=== PATIENT | female | born 1955 | race Caucasian/White ===

== ENCOUNTER 2021-06-01 15:52 | Emergency (ER) | payer MEDICARE, SELFPAY ==
[2021-06-01 16:11] VITALS: BP 133/83; PULSE 69; RESP 18; TEMP 36.8; O2SAT 96; BMI 24.0
--- NOTE | 2021-06-01 16:17 | XRR_ITS ---
PROCEDURE INFORMATION: Exam: XR Chest Exam date and time: 06/01/2021 4:17 PM Age: 65 years old Clinical indication: Pain; Angina and other: Syncope; Angina pectoris; Prior surgery; Surgery date: 6+ months; Surgery type: Bicuspid valve replacement; Patient HX: Had seizures 5 days ago, no prior history of seizures. 3 syncopal episodes today TECHNIQUE: Imaging protocol: XR of the chest. Views: 1 view. COMPARISON: No relevant prior studies available. FINDINGS: Tubes, catheters and devices: Median sternotomy changes and heart valve prosthesis. Lungs: Consolidation in the left lung base. The right lung is clear. Pleural spaces: Unremarkable. No pleural effusion. No pneumothorax. Heart/Mediastinum: Unremarkable. No cardiomegaly. Diaphragm: Irregular contour of the left diaphragm. Bones/joints: Right shoulder arthroplasty changes. Multiple old left posterior rib fractures. XR/XR chest 1V portable [id number] IMPRESSION: 1. Consolidation in the left lung base with irregular contour of the left diaphragm. This could relate to old injury. Pneumonia, aspiration, or less likely a neoplastic process cannot be excluded. 2. Follow-up with a CT scan chest is recommended.
--- NOTE | 2021-06-01 16:17 | CTR_ITS ---
PROCEDURE INFORMATION: Exam: CT Head Without Contrast Exam date and time: 06/01/2021 4:17 PM Age: 65 years old Clinical indication: Altered mental status/memory loss; Patient HX: New onset of seizures. Multiple recent falls. Off balance. Dizzy. Visual disturbance. PT started new medicine; Additional info: Ams/ seizure? TECHNIQUE: Imaging protocol: Computed tomography of the head without contrast. Radiation optimization: All CT scans at this facility use at least one of these dose optimization techniques: automated exposure control; mA and/or kV adjustment per patient size (includes targeted exams where dose is matched to clinical indication); or iterative reconstruction. COMPARISON: No relevant prior studies available. RADIATION DOSE METRICS: Total DLP (mGy-cm): 754.25 FINDINGS: Brain: Mild diffuse cortical volume loss. Severe hypodensities in supratentorial periventricular and subcortical white matter, consistent with microangiopathy. No intracranial hemorrhage. Multiple small lacunar infarcts in the bilateral lentiform nuclei, subinsular regions, and left internal capsule. Cerebral ventricles: No ventriculomegaly. Paranasal sinuses: Visualized sinuses are unremarkable. No fluid levels. Mastoid air cells: Visualized mastoid air cells are well aerated. Orbital cavity: Prior cataract surgery. Vasculature: No hyperdense artery. Bones/joints: Unremarkable. No acute fracture. Soft tissues: Small right parietal scalp contusion. CT/CT head wo con* [id number] IMPRESSION: 1. No fracture or intracranial hemorrhage. 2. Severe microangiopathy. 3. Multiple lacunar infarcts in the bilateral basal ganglia, subinsular regions, and left internal capsule are most likely chronic, but are age indeterminate. If there is clinical concern for an acute infarct, this can be further evaluated with MRI.
--- NOTE | 2021-06-01 16:32 | PC.NURSE ---
patient transported to ct via stretcher per laser/electro optics technician.
--- NOTE | 2021-06-01 17:05 | CTR_ITS ---
PROCEDURE INFORMATION: Exam: CT Angiography Head With Contrast, Arteriography Exam date and time: 06/01/2021 5:05 PM Age: 65 years old Clinical indication: Convulsions / seizures and visual disturbance and other: Off balance; Prior surgery; Additional info: Eval for posterior stroke TECHNIQUE: Imaging protocol: Computed tomography angiography of the head with contrast. Exam focused on the arteries. 3D rendering (Not supervised by radiologist): MIP and/or 3D reconstructed images were created by the technologist. Radiation optimization: All CT scans at this facility use at least one of these dose optimization techniques: automated exposure control; mA and/or kV adjustment per patient size (includes targeted exams where dose is matched to clinical indication); or iterative reconstruction. Contrast material: VISI 320; Contrast volume: 95 ml; Contrast route: INTRAVENOUS (IV); COMPARISON: CT head wo con* [id number] 06/01/2021 4:35 PM RADIATION DOSE METRICS: Total DLP (mGy-cm): 2214.03 FINDINGS: ANTERIOR CIRCULATION: Right internal carotid artery: Unremarkable. Intracranial segment is patent with no significant stenosis. No aneurysm. Right middle cerebral artery: Unremarkable. No occlusion or significant stenosis. No aneurysm. Right anterior cerebral artery: Unremarkable. No occlusion or significant stenosis. No aneurysm. Left internal carotid artery: Unremarkable. Intracranial segment is patent with no significant stenosis. No aneurysm. Left middle cerebral artery: Unremarkable. No occlusion or significant stenosis. No aneurysm. Left anterior cerebral artery: Unremarkable. No occlusion or significant stenosis. No aneurysm. POSTERIOR CIRCULATION: Right vertebral artery: Unremarkable. No occlusion or significant stenosis. No aneurysm. Left vertebral artery: Unremarkable. No occlusion or significant stenosis. No aneurysm. Basilar artery: Unremarkable. No occlusion or significant stenosis. No aneurysm. Right posterior cerebral artery: Unremarkable. No occlusion or significant stenosis. No aneurysm. Left posterior cerebral artery: Unremarkable. No occlusion or significant stenosis. No aneurysm. Brain: No definite mass, mass effect, or midline shift. Cerebral ventricles: No ventriculomegaly. Bones/joints: Unremarkable. No acute fracture. Soft tissues: Unremarkable. PROCEDURE INFORMATION: Exam: CT Angiography Neck With Contrast Exam date and time: 06/01/2021 5:05 PM Age: 65 years old Clinical indication: Convulsions / seizures and visual disturbance and other: Off balance; Prior surgery; Additional info: Eval for posterior stroke TECHNIQUE: Imaging protocol: Computed tomography angiography of the neck with contrast. 3D rendering (Not supervised by radiologist): MIP and/or 3D reconstructed images were created by the technologist. Radiation optimization: All CT scans at this facility use at least one of these dose optimization techniques: automated exposure control; mA and/or kV adjustment per patient size (includes targeted exams where dose is matched to clinical indication); or iterative reconstruction. Contrast material: VISI 320; Contrast volume: 95 ml; Contrast route: INTRAVENOUS (IV); COMPARISON: CT head wo con* [id number] 06/01/2021 4:35 PM RADIATION DOSE METRICS: Total DLP (mGy-cm): 2214.03 FINDINGS: Right common carotid artery: No stenosis. No dissection or occlusion. Right internal carotid artery: No stenosis of the extracranial segment. No dissection or occlusion. Right external carotid artery: No occlusion or stenosis of the origin. Left common carotid artery: No stenosis. No dissection or occlusion. Left internal carotid artery: No stenosis of the extracranial segment. No dissection or occlusion. Left external carotid artery: No occlusion or stenosis of the origin. Right vertebral artery: No stenosis. No dissection or occlusion. Left vertebral artery: No stenosis. No dissection or occlusion. Soft tissues: Normal. No significant soft tissue swelling. Bones/joints: No acute fracture. CT/CT angio headneck* [id number] IMPRESSION: No large vessel stenosis or occlusion. IMPRESSION: No stenosis or occlusion. REFERENCES: NASCET CRITERIA. The degree of internal carotid artery stenosis is based on NASCET criteria. Normal is no stenosis. Mild is less than 50% stenosis. Moderate is 50-69% stenosis. Severe is 70% to 99% stenosis. Total occlusion is no detectable patent lumen.
--- NOTE | 2021-06-01 17:05 | CTR_ITS ---
PROCEDURE INFORMATION: Exam: CTA Chest With Contrast Exam date and time: 06/01/2021 5:05 PM Age: 65 years old Clinical indication: Shortness of breath; Prior surgery; Additional info: Eval aortic valve and aneurymsal surgery TECHNIQUE: Imaging protocol: Computed tomographic angiography of the chest with contrast. 3D rendering (Not supervised by radiologist): MIP and/or 3D reconstructed images were created by the technologist. Radiation optimization: All CT scans at this facility use at least one of these dose optimization techniques: automated exposure control; mA and/or kV adjustment per patient size (includes targeted exams where dose is matched to clinical indication); or iterative reconstruction. Contrast material: VISI 320; Contrast volume: 69 ml; Contrast route: INTRAVENOUS (IV); COMPARISON: CR (CHEST, ) 06/01/2021 4:48 PM RADIATION DOSE METRICS: Total DLP (mGy-cm): 1163.56 FINDINGS: Tubes, catheters and devices: Aortic valve prosthesis. Pulmonary arteries: Normal. No pulmonary emboli. Aorta: 4.2 cm aneurysmal dilatation of the ascending thoracic aorta. No dissection. Tortuous descending thoracic aorta. Lungs: Emphysema. Atelectasis in the lower lobes, left greater than right. No consolidation. Pleural spaces: Unremarkable. No pneumothorax. No pleural effusion. Heart: Coronary artery calcifications and stents. Lymph nodes: Unremarkable. No enlarged lymph nodes. Diaphragm: Mild elevation of the left diaphragm. No hernia identified. Spleen: Hypodensity in the spleen is too small to characterize but is most likely a cyst. No follow-up imaging is recommended. Kidneys and ureters: Fluid density left renal cysts, Hounsfield units less than 20. No follow-up imaging recommended. Bones/joints: Median sternotomy changes. Right shoulder arthroplasty with hardware streak artifact. Scoliosis and kyphosis. T7 kyphoplasty with compression. Minimal T10 compression. Multilevel degenerative changes of the spine. Multiple old healed left rib fractures. Soft tissues: Unremarkable. CT/CT angio chest PE protcl [id number] IMPRESSION: 1. No evidence for pulmonary embolus or other acute finding. 2. Basilar atelectasis, left greater than right. 3. 4.2 cm aneurysmal dilatation of the ascending thoracic aorta. No dissection. COMMENTS: Consistent with the [employer]'s Incidental Findings Committee white paper (J Am Shakira Radiol 2018): Any incidental renal lesion less than 1 cm or classified as too small to characterize, or any incidental cystic renal lesion characterized as simple-appearing, is likely benign. No follow-up imaging is recommended for these lesions per consensus recommendations based on imaging criteria.
[2021-06-01 17:07] VITALS: BP 152/88; PULSE 69; RESP 18; O2SAT 99
--- NOTE | 2021-06-01 17:11 | ED_ITS ---
HPI - General Adult General: Chief complaint: Seizure Stated complaint: SEIZURES/INCOHERENT Time Seen by Provider: 06/01/21 16:17 History of Present Illness: HPI narrative: HPI: [65]yo patient w/ hx of bicuspid aortic valve s/p porcine valve repair, HTN not on anticoagulation presenting to the ED for concerns of shaking movements, fall, confusion and and light-headedness since Tuesday. She has no history of prior seizure. On Tuesday, patient was the chiropractor office when she suddenly passwed out, had witnessed diffuse extremity shaking and was confused. Patient went to the emergency room in [place] and had MRI that was performed did not show any acute pathology per patient. Since then, on patient had similar episode of passing out. Patient was sent in evaluate another emergency room work-up. Later today, patient was walking with her family when she suddenly felt very lightheaded but did not pass out. Patient was confused per family member uttering incoherent statements briefly for a few minutes. Patient report that she has shortness of breath at this time. Patient denies any chest pain, palpitation, abdominal pain or back pain prior to the episode of syncope. No recent exertional chest pain or shortness of breath. Denies vertigo or disequilibrium. The episode of syncope was not preceded by any prodromes including nausea, pallor, or diaphoresis. No symptoms of diarrhea, hematuria, dysuria, melena or hematochezia. No prior documented hx of anemia requiring blood transfusions or VTEs. Per family, patient lives at home by herself. Since Tuesday, and family ever checks on her, she seems confused in the afte rnoon. Onset: Tuesday Duration: x 4 days ago Location: home Severity: moderate/severe Review of Systems Narrative: Constitutional: No fever, no chills. HEENT: No vision changes CV: No chest pain, no palpitations PULM: No productive cough, no dyspnea. GI: No abdominal pain, no N/V/D. : No Dysuria MSKEL: No muscle pain SKIN: No new rashes, no lesions. NEURO: No headache, no focal weakness. +shaking, +light-headedness, +confusion HEME: No visible bruises PSYCH: Normal mood Physical Exam Narrative: EXAM NARRATIVE: Head: Atraumatic Eyes: PERRL, conjunctiva without injection, eyes tracking ENT: Mucous membrane moist NECK: Supple without lymphadenopathy, no nuchal rigidity LUNGS: LCTAB CV: RRR ABDOMEN: Soft, nontender in all quadrants, no guarding or rebound tenderness, no CVA or flank tenderness bilaterally EXTREMITY: Normal ROM SKIN: No rash or erythema NEURO: Mental status: A/Ox3 CN II-XII tested and intact. Sensation intact to sharp/dull differentiation in all extremities. Motor: Normal tone and bulk. No abnormal movements appreciated. No pronator drift. Strength tested and 5/5 in bilateral wrist flexion/extension, elbow flexion/extension, shoulder abduction, straight leg raise, knee flexion/extension, ankle dorsiflexion/plantarflexion. Patient ambulates with a steady gait. Coordination: Finger to nose and heel to tyler testing intact bilaterally. PSYCH: Cooperative mood and affect Course Vital Signs: Vital signs: Vital Signs Temperature 98.1 F 06/01/21 22:24 Pulse Rate 18 L 06/01/21 22:24 Respiratory Rate 18 06/01/21 22:24 Blood Pressure 147/81 06/01/21 22:24 Pulse Oximetry 99 06/01/21 22:24 MDM - General Adult MDM Narrative: Medical decision making narrative: [65]yo patient w/ hx of porcine aortic valve, HTN presenting to the ED with multiple episodes of fainting w/ confusion and shaking concerning for syncope vs seizure. Currently symptom free. S/p fall today. HDS. Neurologically intact. Given history, exam and workup, presentation not consistent with seizures given short time course, no postictal state, no seizure activity. Low suspicion for acute neurologic catastrophes to include ICH given lack of trauma, risk factors for bleeding diathesis. Low suspicion for vascular catastrophes to include PE, thoracic aortic dissection, AAA rupture. Presentation not consistent with acute life threatening arrhythmia, structural heart disease, electrical conduction abnormalities, or ACS. Workup: CBC, BMP, Troponin, BNP, ECG, CXR for aspiration, CT head Intervention: IVF, PO challenge, and serial reassessment EKG: No e/o STEMI. No evidence of Brugada?s sign, delta wave, epsilon wave, significantly prolonged QTc, or malignant arrhythmia. [6:00pm] On reassessment, patient continues to HDS. No acute complaints currently. Reported x2 within normal limit. CTA head neck and CTA negative for any acute vessel changes or acute ischemic changes or brain bleed. Patient continues to be neurologically intact. No complaints of chest pain or lightheadedness while observed in the emergency room. I do not suspect the patient has ACS as EKG is nonischemic, patient has had symptoms for 1 week. However, I cannot rule the possibility that this is possible syncope. At 9:45pm I performed shared decision-making with patient regarding admission versus discharge today, and patient prefers to be discharged today. Although is unlikely to be syncope, the patient may benefit from telemetry observation and echo. Presently, we do not have any beds and patient would be in ED hold. Upon hearing this, patient declined to stay in the ER. I explained the risks of leaving the hospital today including lethal arrhythmia, [place], and even . Patient verbalizes understanding of these discussed risk and elect for the alternative of following up earlier next week for stress test on Tuesday or Tuesday and to see a [facility] in clinic. Patient verbalizes understanding to return for any worsening symptoms including chest pain, dyspnea, fatigue, arm pain/jaw pain/back pain or any new or concerning issues. I have given patient follow up with our complex case manager to be seen by our [facility] to ensure patient is not experiencing syncope or cardiac dysrhymia. Patient aware of a call from our complex case manager to schedule for appointment(s) and verbalizes understanding of the importance of following up. Incidental findings of 4.2 cm thoracic aneurysm discussed extensively with patient. Patient received a copy of the CT report with the documented findings. Patient is instructed to follow up urgently with specialists. I have given patient follow up with our complex case manager to be seen by our Neurologist, Dr Justin for new onset of seizure. Patient aware of a call from our complex case manager to schedule for appointment(s) and verbalizes understanding of the importance of following up. Rx keppra 500mg BID for seizure Disposition: Discharge. Patient is given strict return precaution any chest pain shortness breath, focal weakness, any more episodes of lightheadedness. Patient is instructed to not operate heavy machinery, drive, bathe or do any dangerous activity unattended. Patient reassures me that she will follow-up with her primary care provider next 48 hours. Will aware that she has 2 appointments including cardiology and Neurology. Lab Data: Labs: Lab Results 06/01/21 06/01/21 06/01/21 17:10 17:10 17:10 WBC 8.3 10^3/uL 10^3/ uL (4.0-10.0) RBC 3.62 10^6/uL L 10 ^6/uL (4.1-5.3) Hgb 11.0 g/dL L g/dL (11.5-15.3) Hct 34.0 % L % (37.0-47.0) MCV 93.9 fl fl (81-99) MCH 30.4 pg pg (28.0-34.0) MCHC 32.4 g/dL g/dL (30.0-36.0) RDW 12.6 % % (12.1-15.1) Plt Count 254 10^3/cmm 10^3 /cmm (130-400) MPV 9.3 fL fL (7.4-10.4) Neut % (Auto) 72.9 % % Lymph % (Auto) 15.1 % % [place] % (Auto) 8.9 % % Eos % (Auto) 2.3 % % Baso % (Auto) 0.6 % % Neut # (Auto) 6.04 10^3/uL 10^3 /uL (1.8-7.7) Lymph # (Auto) 1.3 10^3/uL 10^3/ uL (0.8-4.8) [place]ham # (Auto) 0.7 10^3/uL 10^3/ uL (0.2-0.9) Eos # (Auto) 0.2 10^3/uL 10^3/ uL (0.0-0.8) Baso # (Auto) 0.1 10^3/uL 10^3/ uL (0.0-0.1) Nucleated RBC % (a uto) 0 % % Nucleated RBCs # 0.0 /100WBC /100W BC Sodium 141 mmol/L mmol/L (136-145) Potassium 3.3 mmol/L L mmol /L (3.5-5.1) Chloride 105 mmol/L mmol/L (98-107) Carbon Dioxide 21 mmol/L L mmol/ L (22-29) Anion Gap 18.3 (5-19) BUN 18 mg/dL mg/dL (8-23) Creatinine 1.3 mg/dL H mg/dL (0.5-0.9) GFR Calculation 40.9 mL/min L mL/ min (90-130) Glucose 86 mg/dL mg/dL (65-115) Calculated Osmolal ity 293 mOsm/kg mOsm/ kg (285-295) Calcium 9.0 mg/dL mg/dL (8.5-10.5) Total Bilirubin 0.5 mg/dL mg/dL (0.15-1.2) AST 18 U/L U/L (0-32) ALT 8 U/L U/L (0-33) Alkaline Phosphata se 104 IU/L IU/L (35-105) Troponin T Baselin e 15 ng/L H ng/L (0-10) Troponin T 120 Min will Delta Troponin T Total Protein 7.0 g/dL g/dL (6.6-8.7) Albumin 4.6 g/dL g/dL (3.5-5.2) Globulin 2.4 g/dL g/dL (1.3-4.6) Lipase 15 U/L U/L (13-60) Urine Color Urine Appearance Urine pH Ur Specific Gravit y Urine Protein Urine Glucose (UA) Urine Ketones Urine Blood Urine Nitrate Urine Bilirubin Urine Urobilinogen Ur Leukocyte Judi ase Urine RBC Urine WBC Ur Squamous Epith Cells Amorphous Sediment Urine Bacteria 06/01/21 06/01/21 18:55 19:00 WBC RBC Hgb Hct MCV MCH MCHC RDW Plt Count MPV Neut % (Auto) Lymph % (Auto) Windham % (Auto) Eos % (Auto) Baso % (Auto) Neut # (Auto) Lymph # (Auto) [place]ham # (Auto) Eos # (Auto) Baso # (Auto) Nucleated RBC % (a uto) Nucleated RBCs # Sodium Potassium Chloride Carbon Dioxide Anion Gap BUN Creatinine GFR Calculation Glucose Calculated Osmolal ity Calcium Total Bilirubin AST ALT Alkaline Phosphata se Troponin T Baselin e Troponin T 120 Min will 14.13 ng/L H ng/L (0-10) Delta Troponin T -0.87 ABS# L ABS# (0-10) Total Protein Albumin Globulin Lipase Urine Color Yellow (Yellow) Urine Appearance Sl hazy (CLEAR) Urine pH 5 (5-7) Ur Specific Gravit y 1.025 (1.005-1.030) Urine Protein Neg (Negative) Urine Glucose (UA) Norm (Normal) Urine Ketones Negative (Negative) Urine Blood Neg (Negative) Urine Nitrate Negative (Negative) Urine Bilirubin Neg (Negative) Urine Urobilinogen Norm mg/dL mg/dL (Negative) Ur Leukocyte Judi ase Trace H (Negative) Urine RBC None /hpf /hpf (0-2) Urine WBC 15-25 /hpf H /hpf (0-5) Ur Squamous Epith Cells 5-10 /hpf H /hpf (0-5) Amorphous Sediment Not Reportable Urine Bacteria 3+ /hpf H /hpf (NONE) Imaging Data^: Other Imaging: Radiologist's impression: [id number] [place], [place] [address]IY Scan ReportSigned Patient: Chrystal Stephens #: [id number]: 4Acct#:[id number]/Sex: 65 / FADM Date: 06/01/21Loc: ERRoom/Bed:Attending Dr: Ordering Provider/Ordering MD: Malia Tidwell MD Date of Service: 06/01/21 Procedure(s): CT angio headneck* [id number] Accession Number(s): [id number] Report Number: [id number] PROCEDURE INFORMATION: Exam: CT Angiography Head With Contrast, Arteriography Exam date and time: 06/01/2021 5:05 PM Age: 65 years old Clinical indication: Convulsions / seizures and visual disturbance and other: Off balance; Prior surgery; Additional info: Eval for posterior stroke TECHNIQUE: Imaging protocol: Computed tomography angiography of the head with contrast. Exam focused on the arteries. 3D rendering (Not supervised by radiologist): MIP and/or 3D reconstructed images were created by the technologist. Radiation optimization: All CT scans at this facility use at least one of these dose optimization techniques: automated exposure control; mA and/or kV adjustment per patient size (includes targeted exams where dose is matched to clinical indication); or iterative reconstruction. Contrast material: VISI 320; Contrast volume: 95 ml; Contrast route: INTRAVENOUS (IV); COMPARISON: CT head wo con* [id number] 06/01/2021 4:35 PM RADIATION DOSE METRICS: Total DLP (mGy-cm): 2214.03 FINDINGS: ANTERIOR CIRCULATION: Right internal carotid artery: Unremarkable. Intracranial segment is patent with no significant stenosis. No aneurysm. Right middle cerebral artery: Unremarkable. No occlusion or significant stenosis. No aneurysm. Right anterior cerebral artery: Unremarkable. No occlusion or significant stenosis. No aneurysm. Left internal carotid artery: Unremarkable. Intracranial segment is patent with no significant stenosis. No aneurysm. Left middle cerebral artery: Unremarkable. No occlusion or significant stenosis. No aneurysm. Left anterior cerebral artery: Unremarkable. No occlusion or significant stenosis. No aneurysm. POSTERIOR CIRCULATION: Right vertebral artery: Unremarkable. No occlusion or significant stenosis. No aneurysm. Left vertebral artery: Unremarkable. No occlusion or significant stenosis. No aneurysm. Basilar artery: Unremarkable. No occlusion or significant stenosis. No aneurysm. Right posterior cerebral artery: Unremarkable. No occlusion or significant stenosis. No aneurysm. Left posterior cerebral artery: Unremarkable. No occlusion or significant stenosis. No aneurysm. Brain: No definite mass, mass effect, or midline shift. Cerebral ventricles: No ventriculomegaly. Bones/joints: Unremarkable. No acute fracture. Soft tissues: Unremarkable. PROCEDURE INFORMATION: Exam: CT Angiography Neck With Contrast Exam date and time: 06/01/2021 5:05 PM Age: 65 years old Clinical indication: Convulsions / seizures and visual disturbance and other: Off balance; Prior surgery; Additional info: Eval for posterior stroke TECHNIQUE: Imaging protocol: Computed tomography angiography of the neck with contrast. 3D rendering (Not supervised by radiologist): MIP and/or 3D reconstructed images were created by the technologist. Radiation optimization: All CT scans at this facility use at least one of these dose optimization techniques: automated exposure control; mA and/or kV adjustment per patient size (includes targeted exams where dose is matched to clinical indication); or iterative reconstruction. Contrast material: VISI 320; Contrast volume: 95 ml; Contrast route: INTRAVENOUS (IV); COMPARISON: CT head wo con* [id number] 06/01/2021 4:35 PM RADIATION DOSE METRICS: Total DLP (mGy-cm): 2214.03 FINDINGS: Right common carotid artery: No stenosis. No dissection or occlusion. Right internal carotid artery: No stenosis of the extracranial segment. No dissection or occlusion. Right external carotid artery: No occlusion or stenosis of the origin. Left common carotid artery: No stenosis. No dissection or occlusion. Left internal carotid artery: No stenosis of the extracranial segment. No dissection or occlusion. Left external carotid artery: No occlusion or stenosis of the origin. Right vertebral artery: No stenosis. No dissection or occlusion. Left vertebral artery: No stenosis. No dissection or occlusion. Soft tissues: Normal. No significant soft tissue swelling. Bones/joints: No acute fracture. CT/CT angio headneck* [id number] IMPRESSION: No large vessel stenosis or occlusion. IMPRESSION: No stenosis or occlusion. REFERENCES: NASCET CRITERIA. The degree of internal carotid artery stenosis is based on NASCET criteria. Normal is no stenosis. Mild is less than 50% stenosis. Moderate is 50-69% stenosis. Severe is 70% to 99% stenosis. Total occlusion is no detectable patent lumen. Dictated By:Ruben Burgos DOSigned By:Ruben Burgos DOSigned D ate/Time:06/01/212038DD/ [address] [address]GS Scan ReportSigned Patient: Chrystal Stephens RUnit #: [id number]: 1955cct#:[id number] Age/Sex: 65 / FADM Date: 06/01/21Loc: [facility]/Bed:Attending Dr: Ordering Provider/Ordering MD: Malia Tidwell MD Date of Service: 06/01/21 Procedure(s): CT angio chest PE [facility] [id number] Accession Number(s): [id number] Report Number: [id number] PROCEDURE INFORMATION: Exam: CTA Chest With Contrast Exam date and time: 06/01/2021 5:05 PM Age: 65 years old Clinical indication: Shortness of breath; Prior surgery; Additional info: Eval aortic valve and aneurymsal surgery TECHNIQUE: Imaging protocol: Computed tomographic angiography of the chest with contrast. 3D rendering (Not supervised by radiologist): MIP and/or 3D reconstructed images were created by the technologist. Radiation optimization: All CT scans at this facility use at least one of these dose optimization techniques: automated exposure control; mA and/or kV adjustment per patient size (includes targeted exams where dose is matched to clinical indication); or iterative reconstruction. Contrast material: VISI 320; Contrast volume: 69 ml; Contrast route: INTRAVENOUS (IV); COMPARISON: CR (CHEST, ) 06/01/2021 4:48 PM RADIATION DOSE METRICS: Total DLP (mGy-cm): 1163.56 FINDINGS: Tubes, catheters and devices: Aortic valve prosthesis. Pulmonary arteries: Normal. No pulmonary emboli. Aorta: 4.2 cm aneurysmal dilatation of the ascending thoracic aorta. No dissection. Tortuous descending thoracic aorta. Lungs: Emphysema. Atelectasis in the lower lobes, left greater than right. No consolidation. Pleural spaces: Unremarkable. No pneumothorax. No pleural effusion. Heart: Coronary artery calcifications and stents. Lymph nodes: Unremarkable. No enlarged lymph nodes. Diaphragm: Mild elevation of the left diaphragm. No hernia identified. Spleen: Hypodensity in the spleen is too small to characterize but is most likely a cyst. No follow-up imaging is recommended. Kidneys and ureters: Fluid density left renal cysts, Hounsfield units less than 20. No follow-up imaging recommended. Bones/joints: Median sternotomy changes. Right shoulder arthroplasty with hardware streak artifact. Scoliosis and kyphosis. T7 kyphoplasty with compression. Minimal T10 compression. Multilevel degenerative changes of the spine. Multiple old healed left rib fractures. Soft tissues: Unremarkable. CT/CT angio chest PE protcl [id number] IMPRESSION: 1. No evidence for pulmonary embolus or other acute finding. 2. Basilar atelectasis, left greater than right. 3. 4.2 cm aneurysmal dilatation of the ascending thoracic aorta. No dissection. COMMENTS: Consistent with the [employer]'s Incidental Findings Committee white paper (J Am Shakira Radiol 2018): Any incidental renal lesion less than 1 cm or classified as too small to characterize, or any incidental cystic renal lesion characterized as simple-appearing, is likely benign. No follow-up imaging is recommended for these lesions per consensus recommendations based on imaging criteria. Dictated By:Edson Castro By:Edson Castro Date/Time:06/01/212028DD/ 170 [facility] [place], [place] [address]HS Scan ReportSigned Patient: Chrystal Stephens #: [id number]: [facility][id number]/Sex: 65 / FADM Date: 06/01/21Loc: ERRoom/Bed:Attending Dr: Ordering Provider/Ordering MD: Malia Tidwell MD Date of Service: 06/01/21 Procedure(s): CT head wo con* [id number] Accession Number(s): [id number] Report Number: [id number] PROCEDURE INFORMATION: Exam: CT Head Without Contrast Exam date and time: 06/01/2021 4:17 PM Age: 65 years old Clinical indication: Altered mental status/memory loss; Patient HX: New onset of seizures. Multiple recent falls. Off balance. Dizzy. Visual disturbance. PT started new medicine; Additional info: Ams/ seizure? TECHNIQUE: Imaging protocol: Computed tomography of the head without contrast. Radiation optimization: All CT scans at this facility use at least one of these dose optimization techniques: automated exposure control; mA and/or kV adjustment per patient size (includes targeted exams where dose is matched to clinical indication); or iterative reconstruction. COMPARISON: No relevant prior studies available. RADIATION DOSE METRICS: Total DLP (mGy-cm): 754.25 FINDINGS: Brain: Mild diffuse cortical volume loss. Severe hypodensities in supratentorial periventricular and subcortical white matter, consistent with microangiopathy. No intracranial hemorrhage. Multiple small lacunar infarcts in the bilateral lentiform nuclei, subinsular regions, and left internal capsule. Cerebral ventricles: No ventriculomegaly. Paranasal sinuses: Visualized sinuses are unremarkable. No fluid levels. Mastoid air cells: Visualized mastoid air cells are well aerated. Orbital cavity: Prior cataract surgery. Vasculature: No hyperdense artery. Bones/joints: Unremarkable. No acute fracture. Soft tissues: Small right parietal scalp contusion. CT/CT head wo con* [id number] IMPRESSION: 1. No fracture or intracranial hemorrhage. 2. Severe microangiopathy. 3. Multiple lacunar infarcts in the bilateral basal ganglia, subinsular regions, and left internal capsule are most likely chronic, but are age indeterminate. If there is clinical concern for an acute infarct, this can be further evaluated with MRI. Dictated By:Edson Castro By:Edson Castro Date/Time:06/01/21 1705DD/ 16 [facility] [place], [place] [address]JPtv ReportSigned Patient: Chrystal Stephens #: [id number]: 4Acct#:[id number]/Sex: 65 / FADM Date: 06/01/21Loc: ERRoom/Bed:Attending Dr: Ordering Provider/Ordering MD: Malia Tidwell MD Date of Service: 06/01/21 Procedure(s): XR chest 1V portable [id number] Accession Number(s): [id number] Report Number: [id number] PROCEDURE INFORMATION: Exam: XR Chest Exam date and time: 06/01/2021 4:17 PM Age: 65 years old Clinical indication: Pain; Angina and other: Syncope; Angina pectoris; Prior surgery; Surgery date: 6+ months; Surgery type: Bicuspid valve replacement; Patient HX: Had seizures 5 days ago, no prior history of seizures. 3 syncopal episodes today TECHNIQUE: Imaging protocol: XR of the chest. Views: 1 view. COMPARISON: No relevant prior studies available. FINDINGS: Tubes, catheters and devices: Median sternotomy changes and heart valve prosthesis. Lungs: Consolidation in the left lung base. The right lung is clear. Pleural spaces: Unremarkable. No pleural effusion. No pneumothorax. Heart/Mediastinum: Unremarkable. No cardiomegaly. Diaphragm: Irregular contour of the left diaphragm. Bones/joints: Right shoulder arthroplasty changes. Multiple old left posterior rib fractures. XR/XR chest 1V portable [id number] IMPRESSION: 1. Consolidation in the left lung base with irregular contour of the left diaphragm. This could relate to old injury. Pneumonia, aspiration, or less likely a neoplastic process cannot be excluded. 2. Follow-up with a CT scan chest is recommended. Dictated By:Edson Castro By:Edson Castro Date/Time:06/01/210DD/ 16 Discharge Plan Discharge Patient Disposition: Home Clinical Impression: Shaking, Light headedness, Seizure Condition: Stable Prescriptions: New Keppra 500 mg tablet 500 mg PO BID 14 Days Qty: 28 RF: 0 Discharge Orders: Discharge ED (Routine); Ordered 06/01/21 Ordered By: Malia Tidwell Referrals: Teetee Beltre [Primary Care Provider] - Discharge Diet: Advance as tolerated Discharge Activity: Resume usual activity Patient Instructions: Near Syncope (ED), Seizures Activity Restrictions/Additional Instructions: Please come back to the emergency room for any more breakthrough episodes of seizure. Come back if any weakness in her arms, drooling, difficulty speaking, any neurological symptoms. Please do not swim bathe or drive a vehicle unattended. Our complex case manager will have you follow-up with a steffen house supervisor and a neurologist in the next few days. You would be expected to have a phone call with our complex case manager who will put you on the schedule. Please call us back if you hear from us. This is your CT report below. Please follow up with your primary doctor about this. [employer] [address] [address]RV Scan ReportSigned Patient: Chrystal Stephens RUnynes #: [id number]: 1955cct#:[id number]/Sex: 65 / FADM Date: 06/01/21Loc: ERRoom/Bed:Attending Dr: Ordering Provider/Ordering MD: Malia Tidwell MD Date of Service: 06/01/21 Procedure(s): CT angio chest PE protcl [id number] Accession Number(s): [id number] Report Number: [id number] PROCEDURE INFORMATION: Exam: CTA Chest With Contrast Exam date and time: 06/01/2021 5:05 PM Age: 65 years old Clinical indication: Shortness of breath; Prior surgery; Additional info: Eval aortic valve and aneurymsal surgery TECHNIQUE: Imaging protocol: Computed tomographic angiography of the chest with contrast. 3D rendering (Not supervised by radiologist): MIP and/or 3D reconstructed images were created by the technologist. Radiation optimization: All CT scans at this facility use at least one of these dose optimization techniques: automated exposure control; mA and/or kV adjustment per patient size (includes targeted exams where dose is matched to clinical indication); or iterative reconstruction. Contrast material: VISI 320; Contrast volume: 69 ml; Contrast route: INTRAVENOUS (IV); COMPARISON: CR (CHEST, ) 06/01/2021 4:48 PM RADIATION DOSE METRICS: Total DLP (mGy-cm): 1163.56 FINDINGS: Tubes, catheters and devices: Aortic valve prosthesis. Pulmonary arteries: Normal. No pulmonary emboli. Aorta: 4.2 cm aneurysmal dilatation of the ascending thoracic aorta. No dissection. Tortuous descending thoracic aorta. Lungs: Emphysema. Atelectasis in the lower lobes, left greater than right. No consolidation. Pleural spaces: Unremarkable. No pneumothorax. No pleural effusion. Heart: Coronary artery calcifications and stents. Lymph nodes: Unremarkable. No enlarged lymph nodes. Diaphragm: Mild elevation of the left diaphragm. No hernia identified. Spleen: Hypodensity in the spleen is too small to characterize but is most likely a cyst. No follow-up imaging is recommended. Kidneys and ureters: Fluid density left renal cysts, Hounsfield units less than 20. No follow-up imaging recommended. Bones/joints: Median sternotomy changes. Right shoulder arthroplasty with hardware streak artifact. Scoliosis and kyphosis. T7 kyphoplasty with compression. Minimal T10 compression. Multilevel degenerative changes of the spine. Multiple old healed left rib fractures. Soft tissues: Unremarkable. CT/CT angio chest PE protcl [id number] IMPRESSION: 1. No evidence for pulmonary embolus or other acute finding. 2. Basilar atelectasis, left greater than right. 3. 4.2 cm aneurysmal dilatation of the ascending thoracic aorta. No dissection. COMMENTS: Consistent with the [employer]'s Incidental Findings Committee white paper (J Am Shakira Radiol 2018): Any incidental renal lesion less than 1 cm or classified as too small to characterize, or any incidental cystic renal lesion characterized as simple-appearing, is likely benign. No follow-up imaging is recommended for these lesions per consensus recommendations based on imaging criteria. Dictated By:Edson Castro By:Edson Castro Date/Time:06/01/212028DD/ 170 Coding Level of Care Code ED Ladle Filler for Silvana Gabriel
[2021-06-01 17:27] LABS: Basophils # 0.1 10^3/uL (0.0-0.1); Basophils % 0.6 %; Eosinophils # 0.2 10^3/uL (0.0-0.8); Eosinophils % 2.3 %; Lymphocytes # 1.3 10^3/uL (0.8-4.8); Lymphocytes % 15.1 %; Mean Corpuscular HGB Conc 32.4 g/dL (30.0-36.0); Mean Corpuscular Hemoglobin 30.4 pg (28.0-34.0); Mean Corpuscular Volume 93.9 fl (81-99); Mean Platelet Volume 9.3 fL (7.4-10.4); Monocytes # 0.7 10^3/uL (0.2-0.9); Monocytes % 8.9 %; Neutrophils # 6.04 10^3/uL (1.8-7.7); Neutrophils % 72.9 %; Nucleated Red Blood Cells % 0 %; Platelet Count 254 10^3/cmm (130-400); Red Blood Count 3.62 10^6/uL (4.1-5.3); Red Cell Distribution Width 12.6 % (12.1-15.1); White Blood Count 8.3 10^3/uL (4.0-10.0)
[2021-06-01] MEDS: sodium chloride 0.9% 1,000 ML 999 ML IV (17:27)
[2021-06-01 17:46] LABS: Troponin(5th) Baseline 15 ng/L (0-10)
[2021-06-01 17:47] LABS: Alanine Aminotransferase 8 U/L (0-33); Albumin Level 4.6 g/dL (3.5-5.2); Alkaline Phosphatase 104 IU/L (35-105); Anion Gap 18.3 (5-19); Aspartate Amino Transferase 18 U/L (0-32); Blood Urea Nitrogen 18 mg/dL (8-23); Carbon Dioxide 21 mmol/L (22-29); Chloride 105 mmol/L (98-107); Globulin 2.4 g/dL (1.3-4.6); Glomerular Filtration Rate 40.9 mL/min (90-130); Glucose 86 mg/dL (65-115); Lipase 15 U/L (13-60); Osmolality Calculated 293 mOsm/kg (285-295); Potassium 3.3 mmol/L (3.5-5.1); Sodium 141 mmol/L (136-145); Total Bilirubin 0.5 mg/dL (0.15-1.2)
--- NOTE | 2021-06-01 18:18 | ECG_ITS ---
[facility] Test Date: 2021-06-01 Pat Name: Chrystal Stephens Department: Room: Gender: Female Vice President [employer]: : 1955 Requested By: Malia Tidwell Order Number: [id number] Christie MD: Miguelina King M.D. Measurements Intervals [place] Rate: 73 P: 65 CT: 186 QRS: 66 QRSD: 82 T: 63 QT: 401 QTc: 445 Interpretive Statements SINUS RHYTHM MINIMAL VOLTAGE CRITERIA FOR LVH, CONSIDER NORMAL VARIANT [MEETS CRITERIA IN ONE OF: R(aVL), S(V1), R(V5), R(V5/V6)+S(V1)] No previous ECG available for comparison Electronically Signed On 06-01-2021 22:33:02 ROPE TWISTING MACHINE OPERATOR by Miguelina King M.D. [id number]
[2021-06-01 19:19] LABS: Bilirubin Urine Neg (Negative); Blood Urine Neg (Negative); Glucose Urine UA Norm (Normal); Ketones Urine Negative (Negative); Nitrate Urine Negative (Negative); Protein Urine Neg (Negative); Specific Gravity, Urine 1.025 (1.005-1.030); Urine Appearance SL Hazy (CLEAR); Urine Color Yellow (Yellow); Urobilinogen Urine Norm (Negative); pH Urine 5 (5-7)
[2021-06-01 19:20] LABS: Add Urine Culture? Yes; Add Urine Microscopic? YES; Bacteria Urine 3+ /hpf; Leukocyte Esterase Urine Trace (Negative); WBC Urine 15-25 /hpf (0-5)
[2021-06-01 19:41] LABS: Troponin 5 2HR 14.13 ng/L (0-10)
[2021-06-01 19:48] LABS: Troponin 5 2HR Delta -0.87 ABS# (0-10)
[2021-06-01] MEDS: iodixanol 320 mg/mL 100mL Btl IV ×3 (20:02→20:03)
--- NOTE | 2021-06-01 20:37 | PC.NURSE ---
upon return from ct patinet found to have pulled IV from RAC. when asked patient replies i didnt know . arent we bout ready to go. patient inofrmed of wait for CT read . Patient in no obvious distress. family at bedside.
--- NOTE | 2021-06-01 20:50 | PC.NURSE ---
patient ambulated to restroom with assistance. patient insistent on using restroom. patinet with unsteady gate noted upon ambulation but no difficulties to restroom and return to room. patient in no obvious distress.
[2021-06-01 22:22] VITALS: BP 147/81; PULSE 67; RESP 18; TEMP 36.7; O2SAT 99
[2021-06-01 22:24] VITALS: BP 147/81; PULSE 18; RESP 18; TEMP 36.7; O2SAT 99
--- NOTE | 2021-06-02 11:22 | DCPLANNER ---
assurance services manager health care had message to schedule a follow up appointment for patient with neurology for new onset of seizures. assurance services manager health care emailed patients information to the neurology group. Patients information will be printed and reviewed. Clinic will call patient with appointment informaiton.
--- NOTE | 2021-06-03 10:49 | DCPLANNER ---
ops manager had message to schedule a follow up appointment for patient with heart care. Tyrell walden called the heart care clinic, spoke with Franny, gave clinic patients information. A follow up appointment was scheduled for Wednesday, June 23, [address] at 9:[address] King at the [facility]. ops manager called patient, gave her the appointment information, patient stated that she is not living in the area, at this time and does not want the appointment. Patient stated that she may move back to the area at the end of June, and may want the appointment scheduled at that time. ops manager called Franny, at [facility] and cancelled the appointment. ops manager emailed the neurology group and cancelled the referral that was made for patient.
== END 2021-06-01 22:25 | disposition home or self-care (01) ==
PROVIDERS: Emergency Provider Emergency Medicine; PCP Internal Medicine
DX: R56.9 Unspecified convulsions (principal); R42 Dizziness and giddiness
CPT/HCPCS: 70450; 70496; 70498; 71045; 71275; 80053; 81001; 83690; 84484; 85025; 87077; 87086; 87186; 93005; 96361; 96374; 99283; J1953; J7030; Q9967

== ENCOUNTER 2024-01-03 10:08 | Outpatient (CLI) | payer MEDICARE, SELFPAY ==
--- NOTE | 2024-01-03 10:00 | MM_ITS ---
WS: [id number] BILATERAL 3D TOMOSYNTHESIS DIGITAL SCREENING MAMMOGRAPHY WITH CAD CLINICAL INFORMATION: SCREENING HISTORY: Screening mammogram. No current complaints. COMPARISON: 2020 TECHNIQUE: Bilateral CC and MLO views. FINDINGS: Scattered fibroglandular densities bilaterally. No suspicious focal mass, asymmetry, calcifications, or architectural distortion. No evidence of malignancy. A few incidental punctate calcifications. MM/[place] [id number] IMPRESSION: BI-RADS: 2-Benign FOLLOW UP: 1 Year Follow-up Recommend return to annual screening mammography.
== END 2024-01-03 10:09 | disposition home or self-care (01) ==
PROVIDERS: PCP Internal Medicine; Visit Provider Internal Medicine
DX: Z12.31 Encounter for screening mammogram for malignant neoplasm of breast (principal); R92.323 Mammographic fibroglandular density, bilateral breasts; R92.1 Mammographic calcification found on diagnostic imaging of breast
CPT/HCPCS: 77063; 77067

== ENCOUNTER 2025-01-29 09:06 | Outpatient (CLI) | payer MEDICARE, SELFPAY ==
--- NOTE | 2025-01-29 09:10 | MM_ITS ---
WS: [id number] BILATERAL 3D TOMOSYNTHESIS DIGITAL SCREENING MAMMOGRAPHY WITH CAD CLINICAL INFORMATION: SCREENING HISTORY: Screening mammogram. No current complaints. COMPARISON: 2023 TECHNIQUE: Bilateral CC and MLO views. FINDINGS: Scattered fibroglandular densities bilaterally. No suspicious focal mass, asymmetry, calcifications, or architectural distortion. No evidence of malignancy. A few incidental punctate calcifications. MM/MM scr tomosynthesis [id number] IMPRESSION: DENSITY: There are scattered areas of fibroglandular density. BI-RADS: 2 - Benign. FOLLOW UP: 1 Year Follow-up Recommend return to annual screening mammography.
== END 2025-01-29 09:07 | disposition home or self-care (01) ==
PROVIDERS: PCP Family Medicine; Visit Provider Family Medicine
DX: Z12.31 Encounter for screening mammogram for malignant neoplasm of breast (principal); R92.323 Mammographic fibroglandular density, bilateral breasts; R92.1 Mammographic calcification found on diagnostic imaging of breast
CPT/HCPCS: 77063; 77067